=== PATIENT | male | born 2000 | race African-American/Black ===

== ENCOUNTER 2019-10-01 22:35 | Emergency (ER) | payer SELFPAY ==
[~2019-10-01] VITALS: Ht 182.9 cm; Wt 90.0 kg
[~2019-10-01 22:35] MED LIST: ALBU6.7H9; PROM473S4
[2019-10-02] MEDS ORDERED: SODIUM CHLORIDE 0.9% 1,000 ML IV ONE (02:23)
[2019-10-02] MEDS ORDERED: ONDANSETRON HCL 4MG/2ML INJ IV STA (02:23)
[2019-10-02] MEDS ORDERED: LEVETIRACETAM 500MG PREMIX 100 ML IV ONE (02:30)
[2019-10-02] MEDS ORDERED: LORAZEPAM 2MG/ML CPJ IV ONE (02:30)
[2019-10-02 02:43] LABS: BASOPHILS % 0.4 % (0.0-2.0); EOSINOPHILS % 0.1 % (0.0-5.0); HEMATOCRIT. 48.1 % (42.0-52.0); HEMOGLOBIN. 16.1 g/dL (14.0-18.0); LYMPHOCYTES % 7.9 % (20.0-50.0); MEAN CORPUSCULAR HEMOGLOBIN 29.8 pg (28.0-32.0); MEAN PLATELET VOLUME 8.2 fl (7.4-10.4); MONOCYTES % 3.6 % (2.0-8.0); PLATELET 360 x1000/uL (130-400); RED BLOOD CELL COUNT 5.41 mill/uL (4.7-6.1); RED CELL DISTRIBUTION WIDTH 14.1 % (11.6-14.6)
[2019-10-02 02:46] LABS: CHLORIDE 105 mEq/L (98-107)
[2019-10-02 02:50] LABS: ETHANOL BLOOD < 10 mg/dL
[2019-10-02 03:50] LABS: *AMPHETAMINES SCREEN URINE NEGATIVE (NEGATIVE); *BARBITURATES SCREEN URINE NEGATIVE (NEGATIVE); *BENZODIAZEPINES SCREEN URINE PRESUMTIVE POSITIVE (NEGATIVE); *COCAINE SCREEN URINE NEGATIVE (NEGATIVE)
[2019-10-02 03:52] LABS: CANNABINOID URINE SCREEN PRESUMTIVE POSITIVE (NEGATIVE); METHADONE URINE SCREEN NEGATIVE (NEGATIVE); OPIATES URINE SCREEN NEGATIVE (NEGATIVE); PHENCYCLIDINE URINE SCREEN NEGATIVE (NEGATIVE)
[2019-10-02 06:50] VITALS: BP 137/80
== END 2019-10-02 06:52 | disposition home or self-care (01) ==
LOC: ER 22:35
DX: G40.419 Other generalized epilepsy and epileptic syndromes, intractable, without status epilepticus (principal); Z87.820 Personal history of traumatic brain injury; R03.0 Elevated blood-pressure reading, without diagnosis of hypertension
CPT/HCPCS: 36415; 70450; 71045; 80053; 80305; 80320; 85025; 93005; 96365; 96375; 99285; J1953; J2060; J2405; J7030; G0480

== ENCOUNTER 2019-12-06 12:38 | Emergency (ER) | payer MEDICAID ==
[~2019-12-06] VITALS: Ht 172.7 cm; Wt 79.0 kg
[2019-12-06 12:54] VITALS: BP 128/77
== END 2019-12-06 13:43 | disposition home or self-care (01) ==
LOC: ER 12:38
DX: R56.9 Unspecified convulsions (principal); Z76.0 Encounter for issue of repeat prescription
CPT/HCPCS: 99283

== ENCOUNTER 2020-01-21 11:33 | Emergency (ER) | payer SELFPAY ==
[~2020-01-21] VITALS: Ht 182.9 cm; Wt 91.0 kg
[2020-01-21 11:35] VITALS: BP 142/90
== END 2020-01-21 12:24 | disposition left against medical advice (07) ==
LOC: ER 11:38
DX: R56.9 Unspecified convulsions (principal); Z53.21 Procedure and treatment not carried out due to patient leaving prior to being seen by health care provider

== ENCOUNTER 2020-02-29 08:08 | Emergency (ER) | payer SELFPAY ==
[~2020-02-29] VITALS: Ht 177.8 cm; Wt 82.0 kg
[2020-02-29 08:18] VITALS: BP 136/84
[2020-02-29] MEDS ORDERED: KEPPRA (08:18)
== END 2020-02-29 08:59 | disposition left against medical advice (07) ==
LOC: ER 08:31
DX: Z53.21 Procedure and treatment not carried out due to patient leaving prior to being seen by health care provider (principal); R56.9 Unspecified convulsions
CPT/HCPCS: 93005

== ENCOUNTER 2020-04-24 12:21 | Emergency (ER) | payer SELFPAY ==
[~2020-04-24] VITALS: Ht 172.7 cm; Wt 90.0 kg
[~2020-04-24 12:21] MED LIST changes: +KEPPRA
[2020-04-24] MEDS ORDERED: KETOROLAC 30MG/ML VIAL IV STA (13:28)
[2020-04-24] MEDS ORDERED: LEVETIRACETAM 500MG PREMIX 100 ML IV ONE (13:30)
[2020-04-24] MEDS ORDERED: SODIUM CHLORIDE 0.9% 1,000 ML IV ONE (13:30)
[2020-04-24 13:59] LABS: BASOPHILS % 0.3 % (0.0-2.0); EOSINOPHILS % 0.9 % (0.0-5.0); HEMATOCRIT. 49.4 % (42.0-52.0); HEMOGLOBIN. 16.3 g/dL (14.0-18.0); LYMPHOCYTES % 10.8 % (20.0-50.0); MEAN CORPUSCULAR HEMOGLOBIN 29.9 pg (28.0-32.0); MEAN CORPUSCULAR VOLUME 90.5 fL (80.0-94.0); MEAN PLATELET VOLUME 7.8 fl (7.4-10.4); MONOCYTES % 4.4 % (2.0-8.0); NEUTROPHILS % 83.6 % (40.0-76.0); PLATELET 281 x1000/uL (130-400); RED BLOOD CELL COUNT 5.46 mill/uL (4.7-6.1); RED CELL DISTRIBUTION WIDTH 13.4 % (11.6-14.6)
[2020-04-24 14:04] LABS: CHLORIDE 105 mEq/L (98-107)
[2020-04-24 14:08] LABS: ETHANOL BLOOD < 10 mg/dL
[2020-04-24] MEDS ORDERED: LEVE750T66 MT ×2 (16:25→16:28)
[2020-04-24 17:14] VITALS: BP 144/80
== END 2020-04-24 17:15 | disposition home or self-care (01) ==
LOC: ER 12:21
DX: R56.9 Unspecified convulsions (principal); F12.10 Cannabis abuse, uncomplicated; Z91.19 Patient's noncompliance with other medical treatment and regimen
CPT/HCPCS: 36415; 70450; 80053; 80320; 82962; 85025; 93005; 96365; 96375; 99285; J1885; J1953; J7030; Z7610; G0480

== ENCOUNTER 2020-06-20 09:59 | Emergency (ER) | payer OTHER ==
[~2020-06-20] VITALS: Ht 172.7 cm; Wt 105.0 kg
[~2020-06-20 09:59] MED LIST changes: +LEVE750T66 MT
[2020-06-20 10:07] VITALS: BP 125/83
[2020-06-20] MEDS ORDERED: LEVE750T66 MT (10:20)
== END 2020-06-20 10:35 | disposition home or self-care (01) ==
LOC: ER 09:59
DX: Z76.0 Encounter for issue of repeat prescription (principal); G40.909 Epilepsy, unspecified, not intractable, without status epilepticus; F12.90 Cannabis use, unspecified, uncomplicated
CPT/HCPCS: 99283

== ENCOUNTER 2020-06-23 20:44 | Emergency (ER) | payer OTHER ==
[~2020-06-23] VITALS: Ht 172.7 cm; Wt 105.0 kg
[2020-06-23 21:15] VITALS: BP 145/76
[2020-06-23] MEDS ORDERED: LEVE750T66 MT (22:29)
== END 2020-06-23 22:34 | disposition home or self-care (01) ==
LOC: ER 20:44
DX: Z76.0 Encounter for issue of repeat prescription (principal); F12.10 Cannabis abuse, uncomplicated; Z86.59 Personal history of other mental and behavioral disorders
CPT/HCPCS: 99283

== ENCOUNTER 2021-03-02 18:46 | Emergency (ER) | payer MEDICAID, OTHER ==
[~2021-03-02] VITALS: Ht 185.4 cm; Wt 130.0 kg
[2021-03-02] MEDS ORDERED: LORAZEPAM 2MG/ML CPJ IV ONE (19:15)
[2021-03-02] MEDS ORDERED: LEVETIRACETAM 2,000 MG in SODIUM CHLORIDE 0.9% 100 ML IV SCH (19:15)
[2021-03-02 19:23] LABS: BASOPHILS % 0.5 % (0.0-2.0); EOSINOPHILS % 0.4 % (0.0-5.0); HEMATOCRIT. 48.5 % (42.0-52.0); HEMOGLOBIN. 15.9 g/dL (14.0-18.0); LYMPHOCYTES % 9.3 % (20.0-50.0); MEAN CORPUSCULAR HEMOGLOBIN 28.7 pg (28.0-32.0); MEAN CORPUSCULAR VOLUME 87.7 fL (80.0-94.0); MEAN PLATELET VOLUME 7.7 fl (7.4-10.4); MONOCYTES % 5.3 % (2.0-8.0); NEUTROPHILS % 84.5 % (40.0-76.0); PLATELET 337 x1000/uL (130-400); RED BLOOD CELL COUNT 5.53 mill/uL (4.7-6.1); RED CELL DISTRIBUTION WIDTH 13.5 % (11.6-14.6)
[2021-03-02 19:35] LABS: CHLORIDE 106 mEq/L (98-107)
[2021-03-02] MEDS: LEVETIRACETAM 1000MG PREMIX 100 ML IV SCH ×2 (20:15→20:55)
[2021-03-02 23:52] VITALS: BP 121/68
== END 2021-03-02 23:55 | disposition home or self-care (01) ==
LOC: ER 18:46
DX: R56.9 Unspecified convulsions (principal); J45.909 Unspecified asthma, uncomplicated
CPT/HCPCS: 36415; 80053; 82542; 85025; 93005; 96365; 96366; 96375; 99285; J1953; J2060; J7050

== ENCOUNTER 2021-03-09 18:46 | Emergency (ER) | payer OTHER ==
[~2021-03-09] VITALS: Ht 157.5 cm; Wt 89.0 kg
[2021-03-09] MEDS ORDERED: LEVE1000 MT (19:38)
[2021-03-09 19:50] VITALS: BP 138/85
== END 2021-03-09 19:55 | disposition home or self-care (01) ==
LOC: ER 18:46
DX: Z76.0 Encounter for issue of repeat prescription (principal); Z86.59 Personal history of other mental and behavioral disorders; F12.10 Cannabis abuse, uncomplicated
CPT/HCPCS: 99283

== ENCOUNTER 2022-10-27 11:55 | Emergency (ER) | payer MEDICAID, OTHER ==
[~2022-10-27] VITALS: Ht 182.9 cm; Wt 90.0 kg
[~2022-10-27 11:55] MED LIST changes: +ALBU6.7H3; -ALBU6.7H9; +LEVE1000 MT
[2022-10-27 12:00] VITALS: TEMP 99.4; O2SAT 99
[2022-10-27] MEDS ORDERED: LEVETIRACETAM 500MG PREMIX 100 ML IV ONE (12:15)
[2022-10-27 13:21] LABS: HEMATOCRIT. 41.2 % (42.0-52.0); HEMOGLOBIN. 14.1 g/dL (14.0-18.0); MEAN CORPUSCULAR HEMOGLOBIN 29.9 pg (28.0-32.0); MEAN CORPUSCULAR HGB CONC 34.2 g/dL (31.0-37.0); MEAN CORPUSCULAR VOLUME 87.5 fL (80.0-94.0); MEAN PLATELET VOLUME 7.7 fl (7.4-10.4); PLATELET 378 x1000/uL (130-400); RED BLOOD CELL COUNT 4.71 mill/uL (4.7-6.1); RED CELL DISTRIBUTION WIDTH 13.7 % (11.6-14.6)
[2022-10-27 13:28] LABS: DIFFERENTIAL COMMENT 1
[2022-10-27] MEDS ORDERED: LORAZEPAM 2MG/ML CPJ IV ONE (13:30)
[2022-10-27 13:37] LABS: CHLORIDE 103 mEq/L (98-107); INDEX HEMOLYSI 1 (1-3); INDEX ICTERIC 1 (1-4); INDEX LIPEMIC 1 (1-3); POTASSIUM 4.2 mEq/L (3.5-5.1); SODIUM 137 mEq/L (136-145)
[2022-10-27 13:47] LABS: ALANINE AMINOTRANSFERASE 9 IU/L (13-61); ASPARTATE AMINOTRANSFERASE 11 IU/L (15-37); BILIRUBIN TOTAL 0.3 mg/dL (0.1-1.0); CALCIUM 9.2 mg/dL (8.5-10.1); CARBON DIOXIDE 27 mEq/L (21-32); CREATININE 0.7 mg/dL (0.6-1.3); ETHANOL BLOOD < 10 mg/dL (-10); GLUCOSE 120 mg/dL (70-105); PROTEIN TOTAL 7.2 g/dL (6.0-8.3); UREA NITROGEN BLOOD 4 mg/dL (7-21)
[2022-10-27 14:33] LABS: PLATELET ESTIMATE NORMAL
[2022-10-27] MEDS ORDERED: MAGNESIUM/ALUMINUM HYDROXIDE/SIMETHICONE 30ML UDC PO PRN (15:15)
[2022-10-27] MEDS ORDERED: GUAIFENESIN 200MG/10ML SUGAR FREE UDC PO PRN (15:15)
[2022-10-27] MEDS ORDERED: NITROGLYCERIN 0.4MG TABLET SL SL PRN (15:15)
[2022-10-27] MEDS ORDERED: KETOROLAC 15MG/ML VIAL IV PRN (15:15)
[2022-10-27] MEDS ORDERED: CLONIDINE 0.1MG TABLET PO PRN (15:15)
[2022-10-27] MEDS ORDERED: IPRATROPIUM/ALBUTEROL 0.5-3(2.5)MG/3ML NEB NEB PRN (15:15)
[2022-10-27] MEDS ORDERED: ACETAMINOPHEN 325MG TABLET PO PRN ×2 (15:15)
[2022-10-27] MEDS ORDERED: ONDANSETRON HCL 4MG/2ML INJ IV PRN (15:15)
[2022-10-27] MEDS ORDERED: ZOLPIDEM TARTRATE 5MG TABLET PO PRN (15:15)
[2022-10-27] MEDS ORDERED: DOCUSATE SODIUM 100MG CAPSULE PO PRN (15:15)
[2022-10-27 15:20] VITALS: BP 141/96; PULSE 82; RESP 26
[2022-10-27 16:49] LABS: T4 FREE 1.21 ng/dL (0.76-1.46); THYROID STIMULATING HORMONE 0.57 uIU/mL (0.36-3.74)
[2022-10-27 17:02] LABS: VITAMIN B12 SERUM 392 pg/mL (211-911)
[2022-10-27] MEDS ORDERED: FOLIC ACID 1 MG, THIAMINE HCL 100 MG, MVI, ADULT NO.1 10 ML in DEXTROSE 5% WATER 1,000 ML IV NR ×4 (17:30)
[2022-10-27] MEDS ORDERED: ENOXAPARIN 40MG/0.4ML SYR SUBCUT SCH (21:00)
[2022-10-27] MEDS ORDERED: FAMOTIDINE 20MG TABLET PO SCH (21:00)
[2022-10-27] MEDS ORDERED: LEVETIRACETAM 500MG PREMIX 100 ML IV SCH (21:00)
== END 2022-10-27 16:23 | disposition left against medical advice (07) ==
LOC: ER 11:55
DX: R56.9 Unspecified convulsions (principal); F12.10 Cannabis abuse, uncomplicated
CPT/HCPCS: 80053; 80320; 82607; 82746; 83036; 84439; 83540; 83550; 83605; 84443; 85025; 36415; 70450; 93005; 96365; 96375; 99285; J1953; J2060; Z7610 ×3; J3411; J3490; J7070; G0480